=== PATIENT | male | born 1955 | race Caucasian/White ===

== ENCOUNTER → 2020-03-24 | Outpatient (CLI) | payer MEDICARE ==
--- NOTE | 2020-03-24 17:10 | REP ---
PET/CT: HISTORY: Left upper lobe lung carcinoma. COMPARISONS: Comparison CT study of the chest February 21, 2020. TECHNIQUE: 51 minutes following the intravenous injection of a 9.7 mCi dose of F-18 FDG, three-dimensional PET scintigraphy is acquired from the skull base to the proximal thighs. Triplanar noncontrast CT scanning is acquired through the same anatomic range for attenuation correction, and image registration with scan parameters optimized to minimize radiation exposure to the patient. PET scintigraphy and CT datasets were fused and displayed on a workstation with multiplanar and projection display capability. PET/CT FINDINGS: There is normal variant skeletal muscle uptake about the lower neck and shoulder area bilaterally. Head and neck soft tissues are otherwise unremarkable. There is no abnormal hypermetabolic uptake in the chest. Maximum standard uptake value in the nodular density in the left lung apex is 0.79. No abnormal hypermetabolic pulmonary parenchymal uptake is seen. No abnormal uptake is noted in the abdomen or pelvis. IMPRESSION: Negative PET scintigraphy. The nodular opacity associated with pleuroparenchymal scarring in the left lung apex is not hypermetabolic. Radiographic followup is advised. Electronically Signed by Tacho Thompson MD 03/24/2020 05:20 P
== END ==
LOC: M PLARAD 14:11
PROVIDERS: ATTEND Internal Medicine Pulmonary Disease
DX: R91.1 Solitary pulmonary nodule (principal)
CPT/HCPCS: 78815; A9552

== ENCOUNTER → 2020-08-20 | Outpatient (CLI) | payer MEDICARE ==
--- NOTE | 2020-08-20 17:31 | REP ---
INDICATION: OTHER NON SPECIFIC ABNORMAL FINDING OF LUNG FIELD. COMPARISON: Comparison CT studies are reviewed from June 15, 2020, February 21, 2020, November 28, 2016, and October 08, 2014.. TECHNIQUE: Helical scanning is acquired. 3 mm axial images are generated. Coronal and sagittal MPR and coronal MIP images are generated. FINDINGS: There is biapical pleuroparenchymal scarring, left more so than right unchanged from the 2015 prior study. Recently identified infiltrates on the June 15, 2020 prior study have resolved consistent with resolving pneumonia. No new infiltrate is seen. No pulmonary mass lesion is observed. No pleural or pericardial effusion is seen. No significant pulmonary nodule is appreciated. No endobronchial lesion is seen. I do not see a complete minor fissure on the right. There is some vascular calcification. No extra thoracic mass or adenopathy is seen. The adrenal glands are normal. There is opaque material layering in the dependent portion of the gallbladder consistent with cholelithiasis. IMPRESSION: No active cardiopulmonary disease. Recently noted infiltrates have resolved since the June 15, 2020 study. <Electronically signed by Kirk Thompson > 08/20/20 [id number]
== END ==
LOC: M RAD 14:08
PROVIDERS: ATTEND Internal Medicine Pulmonary Disease
DX: R91.8 Other nonspecific abnormal finding of lung field (principal)

== ENCOUNTER → 2020-12-17 | Outpatient (CLI) | payer MEDICARE ==
[~2020-12-17] MED LIST: AMIT50TA PO; ANOR1AER PO; ATOR80TA59 PO; AZIT-12 PO; CEFU50TA PO; E-Z-GAS II EFFERVESCENT PACKET (SODIUM BICARB./CITRIC ACID/SIMETHICONE) As Ordered ONE; E-Z-HD 98% w/w 340GM SUSP BTL As Ordered ONE; E-Z-PAQUE 96% w/w SUSP 176GM BTL As Ordered ONE; FOLI1TAB11 PO; HYDR-3713 PO; ISOVUE-370 76% 100ML VIAL As Ordered ONE; LYRI200C PO; METH10TA2 PO; NARC1SPR; OMEP40CA97 PO; PRED20TA PO; PROAAER10 INH; TIZA4CAP6 PO; TRAZ-252 PO; VOLT1GEL15 TOP
--- NOTE | 2020-12-17 08:51 | REP ---
INDICATION: DYSPHAGIA. COMPARISON: None. TECHNIQUE: Axial CT images with multiplanar reformations with contrast. FINDINGS: Oropharynx, nasopharynx, hypopharynx and larynx appear unremarkable. No significant cervical lymphadenopathy. No mass lesions or abnormal enhancement. Paranasal sinuses and mastoid air cells are clear. The patient is edentulous. IMPRESSION: No mass lesions or abnormal enhancement. No lymphadenopathy identified. <Electronically signed by Beau Cabrera > 12/17/20 [id number]
--- NOTE | 2020-12-17 16:43 | REP ---
INDICATION: DYSPHAGIA. COMPARISON: None. TECHNIQUE: This procedure was performed under the direct supervision of Dr. Richmond. Images were reviewed with Dr. Richmond. Liquid barium and gas producing granules were given in the erect position as well as liquid barium in the prone oblique positions in order to perform a double contrast esophagram examination. 0.6 minutes of fluoro time was utilized for this procedure. FINDINGS: A single view PA chest x-ray is submitted as a admission liaison film. The superior mediastinal structures are midline. The heart size is within normal limits. The lungs are clear. The oral and pharyngeal stages of deglutition are unremarkable. Esophageal transport is prompt and efficient and there is no esophagitis, stricture or mucosal ring there is a small sliding-type or hiatal hernia.Gastroesophageal reflux is not demonstrated on this examination. IMPRESSION: There is a small sliding-type hiatal hernia. Otherwise, unremarkable double-contrast esophagram examination <Electronically signed by Ramirez Sam > 12/17/20 1540 <Electronically signed by Sadiq Richmond > 12/17/20 [id number]
== END ==
LOC: M RAD 08:07
PROVIDERS: ATTEND Otolaryngology
DX: R13.10 Dysphagia, unspecified (principal)
CPT/HCPCS: 70491; 74220; Q9967

== ENCOUNTER → 2021-11-17 | Outpatient (CLI) | payer MEDICARE ==
[~2021-11-17] MED LIST changes: -E-Z-GAS II EFFERVESCENT PACKET (SODIUM BICARB./CITRIC ACID/SIMETHICONE) As Ordered ONE; -E-Z-HD 98% w/w 340GM SUSP BTL As Ordered ONE; -E-Z-PAQUE 96% w/w SUSP 176GM BTL As Ordered ONE; -ISOVUE-370 76% 100ML VIAL As Ordered ONE; +METH-1177 PO; -METH10TA2 PO; +OMEP40CA4 PO; -OMEP40CA97 PO
== END ==
LOC: M RAD 12:34
PROVIDERS: ATTEND Internal Medicine Pulmonary Disease
DX: Z87.891 Personal history of nicotine dependence (principal)

== ENCOUNTER → 2023-01-10 | Outpatient (CLI) | payer MEDICARE ==
[~2023-01-10] MED LIST changes: +BARIUM SULFATE 700 MG TABLET (E-Z-DISK) As Ordered ONE; +E-Z-PAQUE 96% w/w SUSP 176GM BTL As Ordered ONE; +VARIBAR NECTAR 40% w/v 240ML SUSP BTL As Ordered ONE; +VARIBAR PUDDING 40% w/v 230ML TUBE As Ordered ONE
== END ==
LOC: M RAD 12:31
PROVIDERS: ATTEND Otolaryngology
DX: R13.10 Dysphagia, unspecified (principal)

== ENCOUNTER → 2023-01-11 | Outpatient (CLI) | payer MEDICARE ==
[~2023-01-11] MED LIST changes: -BARIUM SULFATE 700 MG TABLET (E-Z-DISK) As Ordered ONE; -E-Z-PAQUE 96% w/w SUSP 176GM BTL As Ordered ONE; +ISOVUE-370 76% 100ML VIAL As Ordered ONE; -VARIBAR NECTAR 40% w/v 240ML SUSP BTL As Ordered ONE; -VARIBAR PUDDING 40% w/v 230ML TUBE As Ordered ONE
== END ==
LOC: M RAD 14:35
PROVIDERS: ATTEND Otolaryngology
DX: J38.01 Paralysis of vocal cords and larynx, unilateral (principal); K80.20 Calculus of gallbladder without cholecystitis without obstruction; I25.10 Atherosclerotic heart disease of native coronary artery without angina pectoris
CPT/HCPCS: 70491; 71260; Q9967

== ENCOUNTER → 2023-02-01 | Outpatient (CLI) | payer MEDICARE ==
[~2023-02-01] MED LIST changes: +ALBU8.5H INH; -ISOVUE-370 76% 100ML VIAL As Ordered ONE
[2023-02-01 11:06] LABS: BASO # 0.1 10^3/uL (0.0-0.2); BASO % 0.8 % (0.0-1.0); EOS # 0.2 10^3/uL (0.0-0.5); LYMPH # 1.6 10^3/uL (1.5-5.0); LYMPH % 20.9 % (24.0-44.0); MEAN CORPUSCULAR HEMOGLOBIN 30.7 pg (27.0-33.0); MEAN CORPUSCULAR HGB CONC 33.3 g/dl (32.0-36.5); MEAN CORPUSCULAR VOLUME 92.2 fl (80.0-96.0); MONO # 0.5 10^3/uL (0.0-0.8); MONO % 6.6 % (2.0-8.0); NEUTROPHILS # 5.3 10^3/uL (1.5-8.5); NEUTROPHILS % 69.6 % (36.0-66.0); PLATELET COUNT, AUTOMATED 208 10^3/uL (150-450); RED BLOOD COUNT 4.23 10^6/uL (4.30-6.10); WHITE BLOOD COUNT 7.6 10^3/uL (4.0-10.0)
[2023-02-01 11:14] LABS: INR 0.95; PROTHROMBIN TIME 12.9 SECONDS (12.5-14.5)
[2023-02-01 11:41] LABS: ALBUMIN 3.6 G/DL (3.2-5.2); ALKALINE PHOSPHATASE 130 U/L (46-116); ALT/SGPT 16 U/L (7.0-40); AST/SGOT 27 U/L (<34); BILIRUBIN,TOTAL 0.4 MG/DL (0.3-1.2); BLOOD UREA NITROGEN < 5 MG/DL (9-23); CALCIUM LEVEL 8.8 MG/DL (8.3-10.6); CARBON DIOXIDE LEVEL 32 MMOL/L (20-31); CHLORIDE LEVEL 105 MMOL/L (98-107); CREATININE FOR GFR 0.81 MG/DL (0.70-1.30); FREE T4 0.85 NG/DL (0.89-1.76); GLOMERULAR FILTRATION RATE > 60.0 (>49); GLUCOSE, FASTING 98 MG/DL (74-106); POTASSIUM SERUM 4.2 MMOL/L (3.5-5.1); SODIUM LEVEL 141 MMOL/L (136-145); THYROID STIMULATING HORMONE 1.773 uIU/ML (0.55-4.78); TOTAL PROTEIN 6.3 G/DL (5.7-8.2)
== END ==
LOC: M ONCR 09:27
PROVIDERS: ATTEND General Practice
DX: J38.3 Other diseases of vocal cords (principal); R13.10 Dysphagia, unspecified; Z87.891 Personal history of nicotine dependence
CPT/HCPCS: 31575; 36415; 80053; 84439; 84443; 85025; 85610; G0463

== ENCOUNTER → 2023-02-07 | Outpatient (POV) | payer MEDICARE ==
[~2023-02-07] VITALS: Ht 182.9 cm; Wt 88.1 kg
[~2023-02-07] MED LIST changes: -ALBU8.5H INH
[2023-02-07 09:40] VITALS: BP 138/72; O2SAT 96
== END ==
LOC: M IRPOV 09:33
PROVIDERS: ATTEND Radiology Diagnostic Radiology
DX: C32.1 Malignant neoplasm of supraglottis (principal); Z87.891 Personal history of nicotine dependence; Z92.3 Personal history of irradiation

== ENCOUNTER → 2023-02-27 | Outpatient (CLI) | payer MEDICARE ==
[~2023-02-27] MED LIST changes: +ALBU8.5H INH
== END ==
LOC: M PLARAD 13:53
PROVIDERS: ATTEND General Practice
DX: C32.1 Malignant neoplasm of supraglottis (principal)
CPT/HCPCS: 78815; A9552

== ENCOUNTER 2023-03-01 09:51 | Outpatient (RCR) | payer MEDICARE ==
[~2023-03-01 09:51] MED LIST changes: -ASPI-1 PO; -CEFD300CAP PO; -FLUC100T3 PO; -GLUCAGON INJ 1MG VIAL ONE; -HYDR-4571 PO; -INCR1INH INH; -ISOVUE-300 61% 100ML VIAL ONE; -LIDO30CR18 TOP; -LIDOCAINE 1% MDV 20ML VIAL ONE; -LIDOCAINE 2% JELLY 6ML SYRINGE ONE; -MAGICMW SS; -MAGN296S16 PO; -MAGN400T2 PO; -MIDAZOLAM INJ 2MG/2ML VIAL ONE; -NS 1,000 ML IV SCH; -OMEP40CA5 PO; -ONDA-84 PO; -POTA20EL PO; -PROC10TA5 PO; -TIZA10TA PO; -ceFAZolin 2 GM/D5W 50 ML IV BAG As Ordered ONE; -ceFAZolin SOD 2 GM in IV 1 EA IV ONE; -diphenhydrAMINE 50MG/ML VIAL ONE; -fentaNYL 100 MCG/2 ML INJECTION ONE
== END 2023-03-03 ==
LOC: M ONCR 09:51
PROVIDERS: ATTEND General Practice
DX: C32.1 Malignant neoplasm of supraglottis (principal)

== ENCOUNTER → 2023-03-01 | Outpatient (CLI) | payer MEDICARE ==
[~2023-03-01] MED LIST changes: +ASPI-1 PO; +CEFD300CAP PO; +FLUC100T3 PO; +GLUCAGON INJ 1MG VIAL ONE; +HYDR-4571 PO; +INCR1INH INH; +ISOVUE-300 61% 100ML VIAL ONE; +LIDO30CR18 TOP; +LIDOCAINE 1% MDV 20ML VIAL ONE; +LIDOCAINE 2% JELLY 6ML SYRINGE ONE; +MAGICMW SS; +MAGN296S16 PO; +MAGN400T2 PO; +MIDAZOLAM INJ 2MG/2ML VIAL ONE; +NS 1,000 ML IV SCH; +OMEP40CA5 PO; +ONDA-84 PO; +POTA20EL PO; +PROC10TA5 PO; +TIZA10TA PO; +ceFAZolin 2 GM/D5W 50 ML IV BAG As Ordered ONE; +ceFAZolin SOD 2 GM in IV 1 EA IV ONE; +diphenhydrAMINE 50MG/ML VIAL ONE; +fentaNYL 100 MCG/2 ML INJECTION ONE
[2023-03-01 12:50] VITALS: TEMP 97.7
[2023-03-01 15:30] VITALS: BP 161/73; O2SAT 96
== END ==
LOC: M IRPRO 12:16
PROVIDERS: ATTEND Radiology Diagnostic Radiology
DX: C76.0 Malignant neoplasm of head, face and neck (principal); J38.01 Paralysis of vocal cords and larynx, unilateral
CPT/HCPCS: 49440; 99152; 99153; C1729; C1769; C1887; C1894; J0690; J1200; J1610; J2250; J3010; Q9967

== ENCOUNTER 2023-03-03 11:25 | Day surgery (SDC) | payer MEDICARE ==
[~2023-03-03] VITALS: Ht 182.9 cm; Wt 88.9 kg
[2023-03-03] MEDS ORDERED: LR 1,000 ML IV SCH (11:35)
[2023-03-03] MEDS ORDERED: LIDOCAINE 2% 100MG/5ML SDV (FOR ANES.) As Ordered ONE (14:02)
[2023-03-03] MEDS ORDERED: SUGAMMADEX SODIUM 500 MG/5 ML VIAL (BRIDION) As Ordered ONE (14:02)
[2023-03-03] MEDS ORDERED: ROCURONIUM BROMIDE 50MG/5ML VIAL As Ordered ONE (14:02)
[2023-03-03] MEDS ORDERED: propofoL 200 MG/20 ML VIAL As Ordered ONE (14:02)
[2023-03-03] MEDS ORDERED: ONDANSETRON 4MG 2ML VIAL As Ordered ONE (14:02)
[2023-03-03] MEDS ORDERED: METHYLENE BLUE 0.5% (5MG/ML) 10 ML AMP (PROVAYBLUE) As Ordered ONE (14:25)
[2023-03-03] MEDS ORDERED: LIDOCAINE W/EPINEPHRINE 1% 20ML VIAL As Ordered ONE (14:25)
[2023-03-03] MEDS ORDERED: OXYMETAZOLINE 0.05% NASAL SPRAY (AFRIN) As Ordered ONE (14:26)
[2023-03-03] MEDS ORDERED: fentaNYL 100 MCG/2 ML INJECTION As Ordered ONE ×2 (14:41→16:18)
[2023-03-03] MEDS ORDERED: MIDAZOLAM INJ 2MG/2ML VIAL As Ordered ONE (14:42)
[2023-03-03] MEDS ORDERED: ACETAMINOPHEN 1000MG 100ML IV BAG As Ordered ONE (16:17)
[2023-03-03] MEDS ORDERED: ONDANSETRON 4MG 2ML VIAL IV PRN (16:30)
[2023-03-03] MEDS ORDERED: MORPHINE 2 MG/ML 1ML VIAL IV PRN (16:30)
[2023-03-03] MEDS ORDERED: fentaNYL 100 MCG/2 ML INJECTION IV PRN (16:30)
[2023-03-03] MEDS ORDERED: oxyCODONE 5MG TAB PO PRN (16:30)
[2023-03-03] MEDS ORDERED: KETOROLAC 30 MG/ML 1ML VIAL IV ONE (16:55)
[2023-03-03] MEDS ORDERED: KETOROLAC 30 MG/ML 1ML VIAL As Ordered ONE (16:58)
[2023-03-03 17:40] VITALS: BP 159/76; TEMP 96.7; O2SAT 96
== END 2023-03-03 18:12 | disposition home or self-care (01) ==
LOC: M SDC 11:25
PROVIDERS: ATTEND Otolaryngology
DX: C32.1 Malignant neoplasm of supraglottis (principal); K21.9 Gastro-esophageal reflux disease without esophagitis; J44.9 Chronic obstructive pulmonary disease, unspecified; Z79.51 Long term (current) use of inhaled steroids; Z79.52 Long term (current) use of systemic steroids; Z79.899 Other long term (current) drug therapy; Z79.891 Long term (current) use of opiate analgesic
CPT/HCPCS: 31536; 88305; J0131; J1100; J1885; J2250; J2405; J3010; Q9968

== ENCOUNTER → 2023-03-17 | Outpatient (CLI) | payer MEDICARE ==
[~2023-03-17] VITALS: Ht 182.9 cm; Wt 89.1 kg
[~2023-03-17] MED LIST changes: +LIDO30CR18 TOP; +LIDOCAINE W/EPINEPHRINE 1% 20ML VIAL As Ordered ONE; +MIDAZOLAM INJ 2MG/2ML VIAL As Ordered ONE; +NS 1,000 ML IV SCH; +ONDA-84 PO; +PROC10TA5 PO; +ceFAZolin 2 GM/D5W 50 ML IV BAG As Ordered ONE; +ceFAZolin SOD 2 GM in IV 1 EA IV ONE; +fentaNYL 100 MCG/2 ML INJECTION As Ordered ONE
[2023-03-17 09:40] VITALS: TEMP 97.7
[2023-03-17 13:15] VITALS: BP 174/83; O2SAT 95
== END ==
LOC: M IRPRO 09:31
PROVIDERS: ATTEND Specialist
DX: C32.1 Malignant neoplasm of supraglottis (principal)
CPT/HCPCS: 36561; 99152; 99153; C1769; C1788; C1894; J0690; J2250; J3010

== ENCOUNTER → 2023-04-03 | Outpatient (RCR) | payer MEDICARE ==
[~2023-04-03] MED LIST changes: -LIDOCAINE W/EPINEPHRINE 1% 20ML VIAL As Ordered ONE; -MIDAZOLAM INJ 2MG/2ML VIAL As Ordered ONE; -NS 1,000 ML IV SCH; -ceFAZolin 2 GM/D5W 50 ML IV BAG As Ordered ONE; -ceFAZolin SOD 2 GM in IV 1 EA IV ONE; -fentaNYL 100 MCG/2 ML INJECTION As Ordered ONE
== END ==
LOC: M ONCR 03-08 10:00
PROVIDERS: ATTEND General Practice
DX: C32.1 Malignant neoplasm of supraglottis (principal)

== ENCOUNTER 2023-04-25 17:14 | Inpatient (IN) | payer MEDICARE ==
[~2023-04-25] VITALS: Ht 182.9 cm; Wt 85.8 kg
[~2023-04-25 17:14] MED LIST changes: +FLUC100T3 PO; +MAGN296S16 PO
[2023-04-25 20:10] LABS: HEMATOCRIT 27.3 % (42.0-52.0); HEMOGLOBIN 9.6 g/dl (13.5-17.5); MEAN CORPUSCULAR HEMOGLOBIN 30.8 pg (27.0-33.0); MEAN CORPUSCULAR HGB CONC 35.2 g/dl (32.0-36.5); MEAN CORPUSCULAR VOLUME 87.5 fl (80.0-96.0); RED BLOOD COUNT 3.12 10^6/uL (4.30-6.10); WHITE BLOOD COUNT 2.6 10^3/uL (4.0-10.0)
[2023-04-25 20:20] LABS: PLATELET COUNT, AUTOMATED 76 10^3/uL (150-450)
[2023-04-25 20:28] LABS: INR 1.03; PROTHROMBIN TIME 13.2 SECONDS (12.5-14.5)
[2023-04-25 20:29] LABS: PARTIAL THROMBOPLASTIN TIME 28.1 SECONDS (24.8-34.2)
[2023-04-25 21:03] LABS: ANISOCYTOSIS 1+; ATYPICAL LYMPH 3 % (0-5); LYMPHOCYTES 11 % (16-44); MONOCYTES 10 % (0-5); NEUTROPHILS 74 % (28-66); PLATELET ESTIMATE DECREASED (NORMAL)
[2023-04-25 21:11] LABS: CK-MB VALUE MASS 1.9 NG/ML (<3.6)
[2023-04-25] MEDS ORDERED: ACETAMINOPHEN 500 MG TAB PO ONE (21:15)
[2023-04-25 21:17] LABS: MB/CK RELATIVE INDEX 0.5 (< OR =4)
[2023-04-25 21:18] LABS: ALBUMIN 2.9 G/DL (3.2-5.2); BILIRUBIN,DIRECT 0.5 MG/DL (<0.4); BILIRUBIN,TOTAL 0.9 MG/DL (0.3-1.2); CALCIUM LEVEL 7.5 MG/DL (8.3-10.6); CREATININE FOR GFR 1.76 MG/DL (0.70-1.30); GLOMERULAR FILTRATION RATE 41.3 (>49); POTASSIUM SERUM 3.1 MMOL/L (3.5-5.1); TOTAL PROTEIN 5.4 G/DL (5.7-8.2)
[2023-04-25 21:32] LABS: ABG BASE EXCESS 9.3 (-2.0-2.0); ABG HCO3 32.4 MMOL/L (22.0-26.0); ABG O2 SATURATION 95.5 % (95.0-99.0); ABG PARTIAL PRESSURE CO2 38.1 mmHg (35.0-45.0); ABG PARTIAL PRESSURE O2 77.8 mmHg (75.0-100.0); ABG TOTAL CO2 33.5 MMOL/L (23.0-31.0); ABG pH (ARTERIAL) 7.547 UNITS (7.350-7.450)
[2023-04-25 22:27] LABS: CK-MB VALUE MASS < 1.0 NG/ML (<3.6)
[2023-04-25 22:33] LABS: CPK CREATINE PHOSPHOKINASE 53 U/L (46-171); MB/CK RELATIVE INDEX 1.88 (< OR =4)
[2023-04-25 23:56] LABS: CK-MB VALUE MASS 1.1 NG/ML (<3.6)
[2023-04-26 00:04] LABS: MB/CK RELATIVE INDEX 0.29 (< OR =4)
[2023-04-26] MEDS ORDERED: NS 500 ML IV ONE (00:10)
[2023-04-26] MEDS ORDERED: NS 1,000 ML IV SCH (03:15)
[2023-04-26] MEDS ORDERED: ONDANSETRON 4MG 2ML VIAL IV PRN (03:15)
[2023-04-26] MEDS ORDERED: ALBUTEROL SULFATE 2.5MG/0.5ML INH NEB SOLN NEB PRN (03:45)
[2023-04-26 03:51] LABS: AMPHETAMINES LEVEL URINE NEGATIVE (NEGATIVE); BARBITURATES URINE NEGATIVE (NEGATIVE); BENZODIAZEPINES URINE NEGATIVE (NEGATIVE); COCAINE METABOLITE URINE NEGATIVE (NEGATIVE)
[2023-04-26 03:52] LABS: CANNABINOIDS URINE NEGATIVE (NEGATIVE); PHENCYCLIDINE URINE NEGATIVE (NEGATIVE)
[2023-04-26] MEDS ORDERED: cefTRIAXone SOD 1 GM in D5W MINI-BAG PLUS 50 ML IV SCH (04:00)
[2023-04-26 04:09] LABS: METHADONE URINE POSITIVE (NEGATIVE); OPIATES URINE POSITIVE (NEGATIVE)
[2023-04-26] MEDS: IPRATROPIUM 0.5MG/ALBUTEROL 2.5MG INH SOL UD 3ML (DUONEB) NEB SCH ×4 (04:22→18:54)
[2023-04-26 04:30] VITALS: BP 131/73; TEMP 97.6; O2SAT 100
[2023-04-26] MEDS ORDERED: ASPIRIN 81MG CHEW TABLET PO ONE (05:00)
[2023-04-26] MEDS ORDERED: SODIUM CHLORIDE 0.9% INJ 10 ML SYR IV PRN (05:05)
[2023-04-26 05:08] LABS: CALCIUM LEVEL 7.1 MG/DL (8.3-10.6); CREATININE FOR GFR 1.55 MG/DL (0.70-1.30); GLOMERULAR FILTRATION RATE 47.8 (>49); POTASSIUM SERUM 3.2 MMOL/L (3.5-5.1)
[2023-04-26 05:17] LABS: BASO % 0.5 % (0.0-1.0); HEMATOCRIT 26.2 % (42.0-52.0); HEMOGLOBIN 9.1 g/dl (13.5-17.5); LYMPH # 0.2 10^3/uL (1.5-5.0); LYMPH % 10.5 % (24.0-44.0); MEAN CORPUSCULAR HEMOGLOBIN 30.8 pg (27.0-33.0); MEAN CORPUSCULAR HGB CONC 34.7 g/dl (32.0-36.5); MEAN CORPUSCULAR VOLUME 88.8 fl (80.0-96.0); MONO # 0.1 10^3/uL (0.0-0.8); MONO % 6.2 % (2.0-8.0); NEUTROPHILS # 1.7 10^3/uL (1.5-8.5); NEUTROPHILS % 81.4 % (36.0-66.0); RED BLOOD COUNT 2.95 10^6/uL (4.30-6.10); WHITE BLOOD COUNT 2.1 10^3/uL (4.0-10.0)
[2023-04-26] MEDS: KCL 20MEQ IN 100ML SWI (KRUN) 20 MEQ in IV 1 EA IV SCH ×4 (05:54→07:03)
[2023-04-26 05:55] LABS: PLATELET COUNT, AUTOMATED 69 10^3/uL (150-450)
[2023-04-26] MEDS ORDERED: HEPARIN SOD (PORCINE) 5000UNITS/ML 1ML VIAL/SYRINGE SC SCH (06:00)
[2023-04-26] MEDS ORDERED: HYDR-4571 PO (06:19)
[2023-04-26] MEDS ORDERED: METH-1177 PO (06:19)
[2023-04-26] MEDS ORDERED: AMIT50TA PO (06:19)
[2023-04-26] MEDS ORDERED: ATOR80TA59 PO (06:19)
[2023-04-26] MEDS ORDERED: INCR1INH INH (06:19)
[2023-04-26] MEDS ORDERED: FOLI1TAB11 PO (06:19)
[2023-04-26] MEDS ORDERED: OMEP40CA5 PO (06:19)
[2023-04-26] MEDS ORDERED: TIZA10TA PO (06:19)
[2023-04-26] MEDS ORDERED: ALBU8.5H INH (06:19)
[2023-04-26] MEDS ORDERED: HOME MED LIST COMPLETE! XX SCH (06:20)
[2023-04-26 07:37] LABS: ALBUMIN 2.8 G/DL (3.2-5.2); BILIRUBIN,DIRECT 0.6 MG/DL (<0.4); BILIRUBIN,TOTAL 1.2 MG/DL (0.3-1.2); TOTAL PROTEIN 5.5 G/DL (5.7-8.2)
[2023-04-26 08:00] VITALS: BP 136/70; TEMP 97.8; O2SAT 100
[2023-04-26] MEDS ORDERED: IPRATROPIUM HFA INHALER 12.9 GRAMS (ATROVENT HFA) INH SCH (08:00)
[2023-04-26] MEDS ORDERED: ASPIRIN 81MG CHEW TABLET PO SCH (09:00)
[2023-04-26] MEDS: SODIUM CHLORIDE 0.9% INJ 10 ML SYR IV SCH (09:18)
[2023-04-26] MEDS ORDERED: LR 250 ML IV ONE (11:35)
[2023-04-26] MEDS ORDERED: traZODone 50 MG TAB PO PRN (11:45)
[2023-04-26] MEDS ORDERED: ISOVUE-370 76% 100ML VIAL As Ordered ONE (11:45)
[2023-04-26] MEDS ORDERED: tiZANidine 4 MG TAB PO PRN (11:45)
[2023-04-26] MEDS ORDERED: PROCHLORPERAZINE 5MG TAB PO PRN (11:45)
[2023-04-26 11:55] VITALS: BP 143/67; TEMP 97.6; O2SAT 99
[2023-04-26] MEDS ORDERED: LR 200 ML IV SCH (12:00)
[2023-04-26] MEDS: OMEPRAZOLE 20MG CAP PO SCH ×2 (12:11→20:48)
[2023-04-26] MEDS: ATORVASTATIN 20 MG TAB PO SCH (12:11)
[2023-04-26] MEDS: NORCO, ANEXSIA 5/325MG TABLET (HYDROcodone/ACETAMINOPHEN) PO PRN (12:12)
[2023-04-26] MEDS: FOLIC ACID 1MG TAB PO SCH (12:12)
[2023-04-26 13:40] LABS: CHOLESTEROL RISK RATIO 3.65 (<5); HDL CHOLESTEROL 32.8 MG/DL (>40); LDL CHOLESTEROL 63.2 MG/DL (<100); NON-HDL-C 87.2 MG/DL
[2023-04-26 14:09] VITALS: O2SAT 97
[2023-04-26] MEDS: HEPARIN SOD (PORCINE) 5000UNITS/ML 1ML VIAL/SYRINGE SQ SCH ×2 (14:48→21:30)
[2023-04-26] MEDS: LR 1,000 ML IV SCH ×2 (14:55→21:30)
[2023-04-26 16:00] VITALS: BP 136/68; TEMP 98.6; O2SAT 94
[2023-04-26] MEDS: METHADONE 10MG TAB PO PRN (16:09)
[2023-04-26] MEDS: PREGABALIN 100 MG CAP (LYRICA) PO SCH ×2 (16:09→20:48)
[2023-04-26 20:08] VITALS: BP 148/67; TEMP 98.1; O2SAT 94
[2023-04-26] MEDS: AMITRIPTYLINE 50 MG TAB PO SCH (20:48)
[2023-04-27] VITALS (23 sets, daily range): BP systolic 112–153; BP diastolic 61–88; TEMP 97.6–98.8; O2SAT 90–100
[2023-04-27] MEDS: IPRATROPIUM 0.5MG/ALBUTEROL 2.5MG INH SOL UD 3ML (DUONEB) NEB SCH ×4 (02:00→19:24)
[2023-04-27] MEDS: HEPARIN SOD (PORCINE) 5000UNITS/ML 1ML VIAL/SYRINGE SQ SCH (05:50)
[2023-04-27] MEDS: cefTRIAXone SOD 1 GM in D5W MINI-BAG PLUS 50 ML IV SCH (05:50)
[2023-04-27] MEDS ORDERED: ASPIRIN 81MG CHEW TABLET PO SCH (06:00)
[2023-04-27] MEDS: ATORVASTATIN 20 MG TAB PO SCH (08:53)
[2023-04-27] MEDS: OMEPRAZOLE 20MG CAP PO SCH ×2 (08:53→20:44)
[2023-04-27] MEDS: ASPIRIN 81MG CHEW TABLET PO SCH (08:53)
[2023-04-27] MEDS: METHADONE 10MG TAB PO PRN ×2 (08:54→20:44)
[2023-04-27] MEDS: FOLIC ACID 1MG TAB PO SCH (08:54)
[2023-04-27] MEDS: PREGABALIN 100 MG CAP (LYRICA) PO SCH ×3 (08:54→20:44)
[2023-04-27] MEDS: SODIUM CHLORIDE 0.9% INJ 10 ML SYR IV SCH (08:56)
[2023-04-27 09:02] LABS: HEMATOCRIT 25.5 % (42.0-52.0); HEMOGLOBIN 8.9 g/dl (13.5-17.5); MEAN CORPUSCULAR HEMOGLOBIN 30.8 pg (27.0-33.0); MEAN CORPUSCULAR HGB CONC 34.9 g/dl (32.0-36.5); MEAN CORPUSCULAR VOLUME 88.2 fl (80.0-96.0); RED BLOOD COUNT 2.89 10^6/uL (4.30-6.10); WHITE BLOOD COUNT 1.1 10^3/uL (4.0-10.0)
[2023-04-27 09:05] LABS: PLATELET COUNT, AUTOMATED 56 10^3/uL (150-450)
[2023-04-27 09:21] LABS: ALBUMIN 2.9 G/DL (3.2-5.2); BILIRUBIN,DIRECT 0.3 MG/DL (<0.4); BILIRUBIN,TOTAL 0.5 MG/DL (0.3-1.2); CALCIUM LEVEL 7.6 MG/DL (8.3-10.6); CREATININE FOR GFR 1.38 MG/DL (0.70-1.30); GLOMERULAR FILTRATION RATE 54.7 (>49); POTASSIUM SERUM 3.2 MMOL/L (3.5-5.1); TOTAL PROTEIN 5.7 G/DL (5.7-8.2)
[2023-04-27 09:54] LABS: ATYPICAL LYMPH 5 % (0-5); LYMPHOCYTES 23 % (16-44); MONOCYTES 3 % (0-5); NEUTROPHILS 69 % (28-66); PLATELET ESTIMATE DECREASED (NORMAL)
[2023-04-27] MEDS: NORCO, ANEXSIA 5/325MG TABLET (HYDROcodone/ACETAMINOPHEN) PO PRN (16:40)
[2023-04-27] MEDS: AMITRIPTYLINE 50 MG TAB PO SCH (20:44)
[2023-04-28] VITALS: O2SAT 93
[2023-04-28] MEDS: IPRATROPIUM 0.5MG/ALBUTEROL 2.5MG INH SOL UD 3ML (DUONEB) NEB SCH ×3 (02:00→13:15)
[2023-04-28 03:45] VITALS: BP 161/76; TEMP 97.9; O2SAT 98
[2023-04-28 04:00] VITALS: O2SAT 95
[2023-04-28] MEDS: cefTRIAXone SOD 1 GM in D5W MINI-BAG PLUS 50 ML IV SCH (05:22)
[2023-04-28 06:30] LABS: HEMATOCRIT 23.9 % (42.0-52.0); HEMOGLOBIN 8.1 g/dl (13.5-17.5); LYMPH # 0.3 10^3/uL (1.5-5.0); LYMPH % 27.1 % (24.0-44.0); MEAN CORPUSCULAR HEMOGLOBIN 30.5 pg (27.0-33.0); MEAN CORPUSCULAR HGB CONC 33.9 g/dl (32.0-36.5); MEAN CORPUSCULAR VOLUME 89.8 fl (80.0-96.0); MONO # 0.1 10^3/uL (0.0-0.8); MONO % 6.3 % (2.0-8.0); RED BLOOD COUNT 2.66 10^6/uL (4.30-6.10)
[2023-04-28 06:31] LABS: NEUTROPHILS # 0.6 10^3/uL (1.5-8.5); PLATELET COUNT, AUTOMATED 64 10^3/uL (150-450)
[2023-04-28 06:34] LABS: WHITE BLOOD COUNT 0.9 10^3/uL (4.0-10.0)
[2023-04-28 06:55] LABS: ALBUMIN 2.6 G/DL (3.2-5.2); BILIRUBIN,DIRECT 0.2 MG/DL (<0.4); BILIRUBIN,TOTAL 0.5 MG/DL (0.3-1.2); CALCIUM LEVEL 6.9 MG/DL (8.3-10.6); CREATININE FOR GFR 1.37 MG/DL (0.70-1.30); GLOMERULAR FILTRATION RATE 55.2 (>49); POTASSIUM SERUM 3.3 MMOL/L (3.5-5.1); TOTAL PROTEIN 5.2 G/DL (5.7-8.2)
[2023-04-28 07:35] VITALS: BP 130/82; TEMP 97.9; O2SAT 92
[2023-04-28] MEDS ORDERED: POTASSIUM CHLORIDE 10% LIQ 20MEQ/15ML UDC PO ONE (08:00)
[2023-04-28] MEDS: FOLIC ACID 1MG TAB PO SCH (08:40)
[2023-04-28] MEDS: PREGABALIN 100 MG CAP (LYRICA) PO SCH ×2 (08:40→15:24)
[2023-04-28] MEDS: ASPIRIN 81MG CHEW TABLET PO SCH (08:40)
[2023-04-28] MEDS: OMEPRAZOLE 20MG CAP PO SCH (08:41)
[2023-04-28] MEDS: ATORVASTATIN 20 MG TAB PO SCH (08:41)
[2023-04-28] MEDS: SODIUM CHLORIDE 0.9% INJ 10 ML SYR IV SCH (08:41)
[2023-04-28 08:45] LABS: NEUTROPHILS % 65.6 % (36.0-66.0)
[2023-04-28 11:41] VITALS: BP 122/84; TEMP 98.2; O2SAT 96
[2023-04-28 16:00] VITALS: TEMP 98.8; O2SAT 98
[2023-04-28 17:27] LABS: INR 1.05; PROTHROMBIN TIME 13.4 SECONDS (12.5-14.5)
[2023-04-28 17:28] LABS: PARTIAL THROMBOPLASTIN TIME 28.3 SECONDS (24.8-34.2)
[2023-04-28] MEDS ORDERED: ASPI-1 PO (17:31)
[2023-04-28] MEDS ORDERED: CEFD300CAP PO (17:31)
[2023-04-28] MEDS ORDERED: CEFDINIR 300 MG CAP (OMNICEF) PO SCH (21:00)
[2023-04-29] MEDS ORDERED: ASPIRIN 325 MG TAB PO SCH (09:00)
[2023-05-01 15:09] LABS: ANTINUCLEAR ANTIBODIES DIRECT Negative (Negative)
== END 2023-04-28 19:01 | disposition home or self-care (01) | DRG 64 ==
LOC: M ED 17:14 → M ED INP 04-26 03:13 → M PCU 04-26 04:27
PROVIDERS: ADMIT Internal Medicine; ATTEND Internal Medicine
PROC: B246ZZZ Ultrasonography of Right and Left Heart (ICD-10-PCS; principal; 2023-04-28)
DX: I63.40 Cerebral infarction due to embolism of unspecified cerebral artery (principal); I21.A1 Myocardial infarction type 2; G93.41 Metabolic encephalopathy; D61.810 Antineoplastic chemotherapy induced pancytopenia; N17.9 Acute kidney failure, unspecified; N39.0 Urinary tract infection, site not specified; J44.9 Chronic obstructive pulmonary disease, unspecified; M54.9 Dorsalgia, unspecified; G89.29 Other chronic pain; K21.9 Gastro-esophageal reflux disease without esophagitis; R53.1 Weakness; R49.0 Dysphonia; E87.6 Hypokalemia; C32.1 Malignant neoplasm of supraglottis; R74.01 Elevation of levels of liver transaminase levels; B96.20 Unspecified Escherichia coli [E. coli] as the cause of diseases classified elsewhere; Z79.891 Long term (current) use of opiate analgesic; Z79.52 Long term (current) use of systemic steroids; Z79.899 Other long term (current) drug therapy; Z20.822 Contact with and (suspected) exposure to COVID-19

== ENCOUNTER → 2023-05-04 | Outpatient (RCR) | payer MEDICARE ==
[~2023-05-04] MED LIST changes: +ASPI-1 PO; +CEFD300CAP PO; +HYDR-4571 PO; +INCR1INH INH; +MAGICMW SS; +MAGN400T2 PO; +OMEP40CA5 PO; +POTA20EL PO; +TIZA10TA PO
== END ==
LOC: M ONCR 04-04 12:59
PROVIDERS: ATTEND General Practice
DX: Z51.0 Encounter for antineoplastic radiation therapy (principal); C32.1 Malignant neoplasm of supraglottis

== ENCOUNTER → 2023-06-16 | Outpatient (REF) | payer MEDICARE ==
[~2023-06-16] MED LIST changes: +NYST-38 SS
== END ==
LOC: M LAB REF 11:52
PROVIDERS: ATTEND Specialist
DX: C32.1 Malignant neoplasm of supraglottis (principal)

== ENCOUNTER → 2023-07-17 | Outpatient (CLI) | payer MEDICARE | LOC: M IRPRO 12:13 | PROVIDERS: ATTEND Nurse Practitioner | DX: C32.1 Malignant neoplasm of supraglottis (principal) ==

== ENCOUNTER → 2023-08-07 | Outpatient (CLI) | payer MEDICARE ==
[~2023-08-07] MED LIST changes: +POTA-298
== END ==
LOC: M PLARAD 07:53
PROVIDERS: ATTEND General Practice
DX: C32.1 Malignant neoplasm of supraglottis (principal)
CPT/HCPCS: 78815; A9552

== ENCOUNTER → 2023-11-22 | Outpatient (CLI) | payer MEDICARE ==
[~2023-11-22] MED LIST changes: +AZIT-10 PO; +LEVO25TA5 PO; -POTA20EL PO; +POTA20LI16 PO; +PRED50TA PO
== END ==
LOC: M ONCR 14:54
PROVIDERS: ATTEND General Practice
DX: Z08 Encounter for follow-up examination after completed treatment for malignant neoplasm (principal); Z85.21 Personal history of malignant neoplasm of larynx; R05.9 Cough, unspecified; R09.89 Other specified symptoms and signs involving the circulatory and respiratory systems; Z71.2 Person consulting for explanation of examination or test findings; Z79.51 Long term (current) use of inhaled steroids; Z79.82 Long term (current) use of aspirin; Z79.890 Hormone replacement therapy; Z79.899 Other long term (current) drug therapy; Z87.891 Personal history of nicotine dependence; Z92.21 Personal history of antineoplastic chemotherapy; Z92.3 Personal history of irradiation
CPT/HCPCS: 31575; G0463

== ENCOUNTER → 2024-03-14 | Outpatient (CLI) | payer MEDICARE ==
[~2024-03-14] MED LIST changes: +ECOT81TA5 PO; +LEVO50TA5 PO; -POTA-298; +POTA-298 PO; +TIZA4CAP3 PO; -TIZA4CAP6 PO
== END ==
LOC: M ONCR 13:00
PROVIDERS: ATTEND General Practice
DX: C32.1 Malignant neoplasm of supraglottis (principal); E03.9 Hypothyroidism, unspecified; Z79.82 Long term (current) use of aspirin; Z79.899 Other long term (current) drug therapy; Z87.891 Personal history of nicotine dependence; Z92.21 Personal history of antineoplastic chemotherapy; Z92.3 Personal history of irradiation
CPT/HCPCS: 31575; G0463

== ENCOUNTER 2024-03-27 13:15 | Observation (INO) | payer MEDICARE ==
[~2024-03-27] VITALS: Ht 182.9 cm; Wt 80.1 kg
[~2024-03-27 13:15] MED LIST changes: -ECOT81TA5 PO
[2024-03-27] MEDS: NS 1,000 ML IV SCH (15:35)
[2024-03-27] MEDS: ONDANSETRON 4MG 2ML VIAL IV ONE (15:43)
[2024-03-27] MEDS: MORPHINE 4 MG/ML 1ML VIAL IV ONE (15:44)
[2024-03-27 15:51] LABS: HEMATOCRIT 28.8 % (42.0-52.0); HEMOGLOBIN 9.6 g/dl (13.5-17.5); MEAN CORPUSCULAR HEMOGLOBIN 33.2 pg (27.0-33.0); MEAN CORPUSCULAR HGB CONC 33.3 g/dl (32.0-36.5); MEAN CORPUSCULAR VOLUME 99.7 fl (80.0-96.0); PLATELET COUNT, AUTOMATED 154 10^3/uL (150-450); RED BLOOD COUNT 2.89 10^6/uL (4.30-6.10)
[2024-03-27 17:17] LABS: CALCIUM LEVEL 8.4 MG/DL (8.3-10.6); CREATININE FOR GFR 1.65 MG/DL (0.70-1.30); GLOMERULAR FILTRATION RATE 44.5 (>49); POTASSIUM SERUM 5.2 MMOL/L (3.5-5.1)
[2024-03-27] MEDS: MORPHINE 4 MG/ML 1ML VIAL IV PRN (17:32)
[2024-03-27] MEDS ORDERED: ONDANSETRON 4MG 2ML VIAL IV PRN (19:25)
[2024-03-27] MEDS ORDERED: ACETAMINOPHEN TAB 650MG DOSE (2X325MG) PO PRN (19:25)
[2024-03-27] MEDS ORDERED: METH-1177 PO (20:25)
[2024-03-27] MEDS ORDERED: HOME MED LIST COMPLETE! XX SCH (20:30)
[2024-03-27] MEDS: HYDROMORPHONE HCL 0.5 MG/ 0.5 ML SYRINGE IV PRN (22:34)
[2024-03-27 23:20] VITALS: BP 155/75; TEMP 97.7; O2SAT 94
[2024-03-27] MEDS ORDERED: tiZANidine 4 MG TAB PO PRN (23:50)
[2024-03-27] MEDS ORDERED: ALBUTEROL 90 MCG/ACT 8GM HFA INHALER INH PRN (23:50)
[2024-03-28] VITALS (12 sets, daily range): BP systolic 112–149; BP diastolic 63–100; TEMP 97–98; O2SAT 89–98
[2024-03-28] MEDS: AMITRIPTYLINE 50 MG TAB PO SCH (00:11)
[2024-03-28] MEDS: traZODone 50 MG TAB PO SCH (00:11)
[2024-03-28] MEDS: METHADONE 10MG TAB PO PRN (00:14)
[2024-03-28] MEDS: NS 1,000 ML IV SCH (01:00)
[2024-03-28] MEDS: PREGABALIN 100 MG CAP (LYRICA) PO SCH (05:01)
[2024-03-28] MEDS: LEVOTHYROXINE 100MCG (0.1MG) 5ML SDV PF (SOLUTION FORM) IV ONE (06:20)
[2024-03-28 06:51] LABS: HEMATOCRIT 29.8 % (42.0-52.0); HEMOGLOBIN 9.9 g/dl (13.5-17.5); MEAN CORPUSCULAR HEMOGLOBIN 33.7 pg (27.0-33.0); MEAN CORPUSCULAR HGB CONC 33.2 g/dl (32.0-36.5); MEAN CORPUSCULAR VOLUME 101.4 fl (80.0-96.0); PLATELET COUNT, AUTOMATED 142 10^3/uL (150-450); RED BLOOD COUNT 2.94 10^6/uL (4.30-6.10)
[2024-03-28 07:25] LABS: ALBUMIN 3.3 G/DL (3.2-5.2); BILIRUBIN,TOTAL 0.6 MG/DL (0.3-1.2); CALCIUM LEVEL 8.8 MG/DL (8.3-10.6); CREATININE FOR GFR 1.56 MG/DL (0.70-1.30); GLOMERULAR FILTRATION RATE 47.4 (>49); POTASSIUM SERUM 5.1 MMOL/L (3.5-5.1); TOTAL PROTEIN 6.2 G/DL (5.7-8.2)
[2024-03-28] MEDS: PANTOPRAZOLE 40MG VIAL IV SCH (08:40)
[2024-03-28] MEDS: MAGNESIUM OXIDE 400MG TAB (MAG-OX) PO SCH (09:00)
[2024-03-28] MEDS ORDERED: fentaNYL 250 MCG/5 ML INJECTION As Ordered ONE (11:48)
[2024-03-28] MEDS ORDERED: MIDAZOLAM INJ 2MG/2ML VIAL As Ordered ONE (11:48)
[2024-03-28] MEDS ORDERED: propofoL 200 MG/20 ML VIAL As Ordered ONE (11:48)
[2024-03-28] MEDS ORDERED: LIDOCAINE 2% 100MG/5ML SDV (FOR ANES.) As Ordered ONE (11:49)
[2024-03-28] MEDS: ceFAZolin 2 GM/D5W 50 ML IV BAG As Ordered ONE (12:33)
[2024-03-28] MEDS ORDERED: ePHEDrine SULFATE 25 MG/5 ML(5MG/ML) SYRINGE As Ordered ONE (12:51)
[2024-03-28] MEDS ORDERED: SUCCINYLCHOLINE 100MG/5ML SYRINGE As Ordered ONE (12:51)
[2024-03-28] MEDS ORDERED: ACETAMINOPHEN 1000MG 100ML IV BAG As Ordered ONE (12:57)
[2024-03-28] MEDS ORDERED: ONDANSETRON 4MG 2ML VIAL As Ordered ONE (13:06)
[2024-03-28] MEDS: ATORVASTATIN 20 MG TAB PO SCH (21:14)
[2024-03-28] MEDS: FOLIC ACID 1MG TAB PO SCH (21:14)
[2024-03-28] MEDS: ceFAZolin SOD 2 GM in IV 1 EA IV SCH (21:14)
[2024-03-29] VITALS: BP 102/80; TEMP 97.5; O2SAT 90
[2024-03-29 04:00] VITALS: BP 102/57; TEMP 97.7; O2SAT 89
[2024-03-29] MEDS: LEVOTHYROXINE 25MCG TABLET (0.025MG) PO SCH (06:05)
[2024-03-29 06:13] LABS: HEMATOCRIT 24.1 % (42.0-52.0); LYMPH # 0.5 10^3/uL (1.5-5.0); LYMPH % 4.2 % (24.0-44.0); MEAN CORPUSCULAR HEMOGLOBIN 33.5 pg (27.0-33.0); MEAN CORPUSCULAR HGB CONC 33.2 g/dl (32.0-36.5); MEAN CORPUSCULAR VOLUME 100.8 fl (80.0-96.0); MONO # 0.5 10^3/uL (0.0-0.8); MONO % 4.3 % (2.0-8.0); NEUTROPHILS # 9.7 10^3/uL (1.5-8.5); NEUTROPHILS % 90.9 % (36.0-66.0); PLATELET COUNT, AUTOMATED 117 10^3/uL (150-450); RED BLOOD COUNT 2.39 10^6/uL (4.30-6.10); WHITE BLOOD COUNT 10.6 10^3/uL (4.0-10.0)
[2024-03-29 06:43] LABS: CALCIUM LEVEL 8.2 MG/DL (8.3-10.6); CREATININE FOR GFR 1.45 MG/DL (0.70-1.30); GLOMERULAR FILTRATION RATE 51.5 (>49); POTASSIUM SERUM 4.6 MMOL/L (3.5-5.1)
[2024-03-29 08:00] VITALS: BP 107/56; TEMP 97.7; O2SAT 94
[2024-03-29] MEDS: HEPARIN SOD (PORCINE) 5000UNITS/ML 1ML VIAL/SYRINGE SQ SCH (09:07)
[2024-03-29 12:00] VITALS: BP 115/64; TEMP 97.5; O2SAT 97
[2024-03-29 16:00] VITALS: BP 120/64; TEMP 97.3; O2SAT 97
[2024-03-29 19:57] VITALS: BP 123/65; TEMP 97.5; O2SAT 94
[2024-03-30 04:00] VITALS: BP 124/74; TEMP 97.3; O2SAT 93
[2024-03-30 06:11] LABS: BASO % 0.4 % (0.0-1.0); EOS % 0.1 % (0.0-3.0); HEMATOCRIT 24.6 % (42.0-52.0); HEMOGLOBIN 8.2 g/dl (13.5-17.5); LYMPH # 0.9 10^3/uL (1.5-5.0); LYMPH % 10.5 % (24.0-44.0); MEAN CORPUSCULAR HEMOGLOBIN 33.9 pg (27.0-33.0); MEAN CORPUSCULAR HGB CONC 33.3 g/dl (32.0-36.5); MEAN CORPUSCULAR VOLUME 101.7 fl (80.0-96.0); MONO # 0.3 10^3/uL (0.0-0.8); NEUTROPHILS % 84.5 % (36.0-66.0); PLATELET COUNT, AUTOMATED 127 10^3/uL (150-450); RED BLOOD COUNT 2.42 10^6/uL (4.30-6.10); WHITE BLOOD COUNT 8.3 10^3/uL (4.0-10.0)
[2024-03-30 06:34] LABS: CALCIUM LEVEL 8.3 MG/DL (8.3-10.6); CREATININE FOR GFR 1.49 MG/DL (0.70-1.30); GLOMERULAR FILTRATION RATE 49.9 (>49); POTASSIUM SERUM 4.2 MMOL/L (3.5-5.1)
[2024-03-30 12:00] VITALS: BP 129/74; TEMP 97.5; O2SAT 95
[2024-03-30 20:00] VITALS: BP 144/80; TEMP 97.7; O2SAT 96
[2024-03-30] MEDS: METHADONE 10MG TAB PO SCH (20:34)
[2024-03-31 04:00] VITALS: BP 134/76; TEMP 97.6; O2SAT 94
[2024-03-31 06:10] LABS: BASO # 0.1 10^3/uL (0.0-0.2); EOS # 0.1 10^3/uL (0.0-0.5); EOS % 1.6 % (0.0-3.0); HEMATOCRIT 29.1 % (42.0-52.0); HEMOGLOBIN 9.4 g/dl (13.5-17.5); LYMPH % 19.4 % (24.0-44.0); MEAN CORPUSCULAR HGB CONC 32.3 g/dl (32.0-36.5); MEAN CORPUSCULAR VOLUME 102.1 fl (80.0-96.0); MONO # 0.3 10^3/uL (0.0-0.8); MONO % 6.5 % (2.0-8.0); NEUTROPHILS # 3.6 10^3/uL (1.5-8.5); NEUTROPHILS % 71.1 % (36.0-66.0); PLATELET COUNT, AUTOMATED 143 10^3/uL (150-450); RED BLOOD COUNT 2.85 10^6/uL (4.30-6.10)
[2024-03-31 06:32] LABS: CALCIUM LEVEL 8.5 MG/DL (8.3-10.6); CREATININE FOR GFR 1.39 MG/DL (0.70-1.30); GLOMERULAR FILTRATION RATE 54.1 (>49); POTASSIUM SERUM 4.6 MMOL/L (3.5-5.1)
[2024-03-31 12:00] VITALS: BP 121/81; TEMP 97.3; O2SAT 98
[2024-03-31 15:30] VITALS: BP 150/86; TEMP 97.2; O2SAT 96
[2024-03-31 20:00] VITALS: BP 158/76; TEMP 97.5; O2SAT 94
[2024-04-01 04:00] VITALS: BP 156/79; TEMP 97.9; O2SAT 95
[2024-04-01 06:55] LABS: BASO % 0.5 % (0.0-1.0); EOS # 0.1 10^3/uL (0.0-0.5); EOS % 1.5 % (0.0-3.0); HEMATOCRIT 26.3 % (42.0-52.0); HEMOGLOBIN 8.7 g/dl (13.5-17.5); LYMPH # 0.7 10^3/uL (1.5-5.0); LYMPH % 10.4 % (24.0-44.0); MEAN CORPUSCULAR HGB CONC 33.1 g/dl (32.0-36.5); MEAN CORPUSCULAR VOLUME 99.6 fl (80.0-96.0); MONO # 0.5 10^3/uL (0.0-0.8); MONO % 7.6 % (2.0-8.0); NEUTROPHILS # 5.3 10^3/uL (1.5-8.5); NEUTROPHILS % 79.4 % (36.0-66.0); PLATELET COUNT, AUTOMATED 146 10^3/uL (150-450); RED BLOOD COUNT 2.64 10^6/uL (4.30-6.10); WHITE BLOOD COUNT 6.6 10^3/uL (4.0-10.0)
[2024-04-01 07:23] LABS: CALCIUM LEVEL 8.1 MG/DL (8.3-10.6); CREATININE FOR GFR 1.45 MG/DL (0.70-1.30); GLOMERULAR FILTRATION RATE 51.5 (>49); MAGNESIUM LEVEL 1.8 MG/DL (1.8-2.4)
[2024-04-01 12:00] VITALS: BP 102/75; TEMP 97.5; O2SAT 96
[2024-04-01] MEDS ORDERED: ECOT81TA5 PO (17:25)
== END 2024-04-01 16:17 | disposition home or self-care (01) ==
LOC: M ED 13:15 → EDBD 13:15 → INTOOBSV 19:24 → M ED INP 19:24 → M MSPAV 23:09
PROVIDERS: ADMIT Internal Medicine; ATTEND Hospitalist
DX: S82.841A Displaced bimalleolar fracture of right lower leg, initial encounter for closed fracture (principal); W10.8XXA Fall (on) (from) other stairs and steps, initial encounter; Y92.008 Other place in unspecified non-institutional (private) residence as the place of occurrence of the external cause; Y93.9 Activity, unspecified; J44.9 Chronic obstructive pulmonary disease, unspecified; Z85.21 Personal history of malignant neoplasm of larynx; E03.9 Hypothyroidism, unspecified; Z79.899 Other long term (current) drug therapy; Z79.891 Long term (current) use of opiate analgesic; G89.4 Chronic pain syndrome; K21.9 Gastro-esophageal reflux disease without esophagitis; E78.5 Hyperlipidemia, unspecified; Z86.73 Personal history of transient ischemic attack (TIA), and cerebral infarction without residual deficits; Z87.891 Personal history of nicotine dependence; Y99.9 Unspecified external cause status
CPT/HCPCS: 27814; 27829; 36415; 73590; 73610; 76000; 80048; 80053; 82550; 83735; 85025; 85027; 86850; 86900; 86901; 96361; 96365; 96366; 96372; 96375; 96376; 97116; 97161; 97165; 97530; 97535; 99285; C1713; G0378; J0131; J0330; J0665; J0690; J1100; J1170; J2250; J2405; J2470; J3010

== ENCOUNTER → 2024-05-08 | Outpatient (CLI) | payer MEDICARE ==
[~2024-05-08] MED LIST changes: +ECOT81TA5 PO
== END ==
LOC: M SOG 07:55
PROVIDERS: ATTEND Orthopaedic Surgery
DX: M25.571 Pain in right ankle and joints of right foot (principal); Z97.8 Presence of other specified devices

== ENCOUNTER → 2024-06-07 | Outpatient (CLI) | payer MEDICARE ==
[~2024-06-07] MED LIST changes: +ISOVUE-370 76% 100ML VIAL As Ordered ONE
== END ==
LOC: M RAD 07:51
PROVIDERS: ATTEND General Practice
DX: C32.1 Malignant neoplasm of supraglottis (principal)
CPT/HCPCS: 70491; 71260; Q9967

== ENCOUNTER → 2024-06-14 | Outpatient (CLI) | payer MEDICARE ==
[~2024-06-14] MED LIST changes: -ISOVUE-370 76% 100ML VIAL As Ordered ONE
== END ==
LOC: M ONCR 13:44
PROVIDERS: ATTEND General Practice
DX: Z08 Encounter for follow-up examination after completed treatment for malignant neoplasm (principal); Z85.21 Personal history of malignant neoplasm of larynx; R91.8 Other nonspecific abnormal finding of lung field; Z87.891 Personal history of nicotine dependence; Z92.21 Personal history of antineoplastic chemotherapy; Z92.3 Personal history of irradiation; Z79.82 Long term (current) use of aspirin; Z79.890 Hormone replacement therapy; Z79.899 Other long term (current) drug therapy
CPT/HCPCS: 31575; G0463

== ENCOUNTER → 2024-08-07 | Outpatient (CLI) | payer MEDICARE | LOC: M SOG 07:51 | PROVIDERS: ATTEND Orthopaedic Surgery | DX: S82.201A Unspecified fracture of shaft of right tibia, initial encounter for closed fracture (principal); M25.571 Pain in right ankle and joints of right foot; Y93.9 Activity, unspecified; Y92.9 Unspecified place or not applicable ==

== ENCOUNTER → 2024-09-20 | Outpatient (CLI) | payer MEDICARE | LOC: M RAD 16:08 | PROVIDERS: ATTEND General Practice | DX: C32.1 Malignant neoplasm of supraglottis (principal) ==

== ENCOUNTER → 2024-09-25 | Outpatient (CLI) | payer MEDICARE | LOC: M ONCR 14:31 | PROVIDERS: ATTEND General Practice | DX: C32.1 Malignant neoplasm of supraglottis (principal); Z87.891 Personal history of nicotine dependence; Z92.21 Personal history of antineoplastic chemotherapy; Z92.3 Personal history of irradiation; Z79.82 Long term (current) use of aspirin; Z79.890 Hormone replacement therapy; Z79.899 Other long term (current) drug therapy | CPT/HCPCS: 31575; G0463 ==

== ENCOUNTER 2024-10-10 06:03 | Day surgery (SDC) | payer MEDICARE ==
[~2024-10-10] VITALS: Ht 182.9 cm; Wt 78.5 kg
[2024-10-10] MEDS ORDERED: NS (Normal Saline) 0.9% 1,000 ML IV SCH ×2 (06:20→09:05)
[2024-10-10 06:32] LABS: HEMATOCRIT 30.9 % (42.0-52.0); HEMOGLOBIN 10.2 g/dl (13.5-17.5); MEAN CORPUSCULAR HEMOGLOBIN 32.1 pg (27.0-33.0); MEAN CORPUSCULAR VOLUME 97.2 fl (80.0-96.0); PLATELET COUNT, AUTOMATED 131 10^3/uL (150-450); RED BLOOD COUNT 3.18 10^6/uL (4.30-6.10); WHITE BLOOD COUNT 4.4 10^3/uL (4.0-10.0)
[2024-10-10] MEDS ORDERED: LIDOCAINE 2% 100MG/5ML SDV (FOR ANES.) As Ordered ONE (07:03)
[2024-10-10] MEDS ORDERED: MIDAZOLAM INJ 2MG/2ML VIAL As Ordered ONE (07:03)
[2024-10-10] MEDS ORDERED: fentaNYL 100 MCG/2 ML INJECTION As Ordered ONE (07:03)
[2024-10-10] MEDS ORDERED: propofoL 200 MG/20 ML VIAL As Ordered ONE (07:03)
[2024-10-10] MEDS: ceFAZolin 2 GM/D5W 50 ML IV BAG As Ordered ONE (07:40)
[2024-10-10] MEDS ORDERED: ONDANSETRON 4MG 2ML VIAL As Ordered ONE (08:12)
[2024-10-10] MEDS ORDERED: KETOROLAC 60MG 2ML VIAL As Ordered ONE (08:12)
[2024-10-10] MEDS ORDERED: fentaNYL 100 MCG/2 ML INJECTION IV PRN (09:05)
[2024-10-10] MEDS ORDERED: ONDANSETRON 4MG 2ML VIAL IV PRN (09:05)
[2024-10-10] MEDS ORDERED: ECOT81TA5 PO (09:15)
[2024-10-10] MEDS ORDERED: OXYC1TAB23 PO (09:15)
[2024-10-10] MEDS: HYDROMORPHONE HCL 0.5 MG/ 0.5 ML SYRINGE IV PRN (09:19)
[2024-10-10] MEDS: oxyCODONE 5MG TAB PO PRN (09:30)
[2024-10-10 11:00] VITALS: BP 136/92; TEMP 97.3; O2SAT 97
== END 2024-10-10 11:23 | disposition home or self-care (01) ==
LOC: M SDC 06:03
PROVIDERS: ATTEND Orthopaedic Surgery
DX: T84.116A Breakdown (mechanical) of internal fixation device of bone of right lower leg, initial encounter (principal); Y79.2 Prosthetic and other implants, materials and accessory orthopedic devices associated with adverse incidents; S82.851A Displaced trimalleolar fracture of right lower leg, initial encounter for closed fracture; J44.9 Chronic obstructive pulmonary disease, unspecified; E78.5 Hyperlipidemia, unspecified; E78.00 Pure hypercholesterolemia, unspecified; Z86.73 Personal history of transient ischemic attack (TIA), and cerebral infarction without residual deficits; Z85.818 Personal history of malignant neoplasm of other sites of lip, oral cavity, and pharynx; Z79.899 Other long term (current) drug therapy; Z92.21 Personal history of antineoplastic chemotherapy; Z92.3 Personal history of irradiation; K21.9 Gastro-esophageal reflux disease without esophagitis; Z87.891 Personal history of nicotine dependence
CPT/HCPCS: 20680; 27822; 27829; 36415; 76000; 85027; 87070; 87075; 87205; C1713; J0665; J0690; J1100; J1171; J1885; J2250; J2405; J3010

== ENCOUNTER → 2024-10-24 | Outpatient (CLI) | payer MEDICARE ==
[~2024-10-24] MED LIST changes: +OXYC1TAB23 PO
== END ==
LOC: M SOG 07:49
PROVIDERS: ATTEND Physician Assistant
DX: T84.196A Other mechanical complication of internal fixation device of bone of right lower leg, initial encounter (principal); S82.841A Displaced bimalleolar fracture of right lower leg, initial encounter for closed fracture

== ENCOUNTER → 2025-01-10 | Outpatient (CLI) | payer MEDICARE ==
[~2025-01-10] MED LIST changes: -PRED50TA PO; +PRED50TA57 PO
== END ==
LOC: M ONCR 14:17
PROVIDERS: ATTEND General Practice
DX: Z08 Encounter for follow-up examination after completed treatment for malignant neoplasm (principal); Z85.21 Personal history of malignant neoplasm of larynx; Z87.891 Personal history of nicotine dependence; Z92.21 Personal history of antineoplastic chemotherapy; Z92.3 Personal history of irradiation; Z79.82 Long term (current) use of aspirin; Z79.890 Hormone replacement therapy; Z79.899 Other long term (current) drug therapy

== ENCOUNTER → 2025-04-10 | Outpatient (CLI) | payer MEDICARE ==
[~2025-04-10] MED LIST changes: +CHOL1250 PO; +D-10TAB3 PO
[2025-04-10 15:12] LABS: FREE T4 1.2 NG/DL (0.89-1.76)
== END ==
LOC: M ONCR 12:48
PROVIDERS: ATTEND General Practice
DX: Z08 Encounter for follow-up examination after completed treatment for malignant neoplasm (principal); Z85.21 Personal history of malignant neoplasm of larynx; Z87.891 Personal history of nicotine dependence; Z92.21 Personal history of antineoplastic chemotherapy; Z92.3 Personal history of irradiation; Z79.82 Long term (current) use of aspirin; Z79.890 Hormone replacement therapy; Z79.899 Other long term (current) drug therapy
CPT/HCPCS: 31575; 36415; 84439; 84443; G0463